=== PATIENT | male | born 1955 | race Caucasian/White ===

== ENCOUNTER 2016-11-07 17:23 | Emergency (ER) | payer OTHER ==
--- NOTE | 2016-11-07 17:54 | EDPHY ---
H & P Stated Complaint: cough and wheezing,getting worse, hx PE,no CP HPI/ROS: HPI CHIEF COMPLAINT: Shortness of breath, wheezing, cough with sputum production HISTORY OF PRESENT ILLNESS: This patient 61-year-old male, significant past medical history for pulmonary embolism, on Coumadin, denies any other underlying lung disease, presents to the emergency room with 2 weeks of progressively worsening shortness of breath. Patient states initially he had sinus congestion and upper airway congestion this then "settled into his chest" patient tells me for the past week has had progressively worsening shortness of breath with cough with clear sputum, and wheezing. Tells me he can' t take a deep breath in. He tells me this feels exactly like he did when he had a pulmonary embolism. He states his initial pulmonary embolism was years ago with calf swelling he has no calf swelling this time or pain. He is on Coumadin for PE. No other medications. he did call his primary care doctor's referred to the emergency room for evaluation. Past Medical History: Denies medical history except for pulmonary embolism Past Surgical History: No recent surgical history Social History: Denies daily use drugs alcohol tobacco Family History: noncontributory ROS REVIEW OF SYSTEMS: A comprehensive 10 point review of systems is otherwise negative aside from elements mentioned in the history of present illness. Exam Constitutional appears well nontoxic triage nursing summary reviewed, vital signs reviewed, awake/alert. Eyes normal conjunctivae and sclera, EOMI, PERRLA. HENT normal inspection, atraumatic, moist mucus membranes, no epistaxis, neck supple/ no meningismus, no raccoon eyes. Respiratory decreased breath sounds bilaterally, wheezing on the right lung worse than the left lung, bronchitic sounding cough Cardiovascular rate normal, regular rhythm, no murmur, no edema, distal pulses normal. Gastrointestinal soft, non-tender, no rebound, no guarding, normal bowel sounds, no distension, no pulsatile mass. Genitourinary no CVA tenderness. Musculoskeletal no midline vertebral tenderness, full range of motion, no calf swelling, no tenderness of extremities, no meningismus, good pulses, neurovascularly intact. Skin pink, warm, & dry, no rash, skin atraumatic. Neurologic awake, alert and oriented x 3, AAOx3, moves all 4 extremities equally, motor intact, sensory intact, CN II-XII intact, normal cerebellar, normal vision, normal speech. Psychiatric normal mood/affect. Heme/Lymph/Immune no lymphadenopathy. Differential Diagnosis: Includes but is not limited to in a particular order, pulmonary embolism, pneumonia, reactive airway disease, asthma, viral syndrome, viral pneumonia, bacterial pneumonia Medical Decision Making: plan for this patient full cardiac catheterization technician IV establishment, check EKG, D-dimer , two view chest x-ray, Coumadin level, DuoNeb breathing treatment, Solu-Medrol Re-evaluation: EKG interpretation by me on record in [employer] system. Impression time of EKG 18 20, sinus rhythm rate of 72 no acute ischemic changes appreciated. Intervals are appropriate. No signs of cardiac arrhythmia. Unremarkable EKG. ED x-ray chest two view: negative for acute pulmonary disease is noted thoracic aorta is tortuous. EKG interpretation by me on record in [facility] system. Impression time of EKG 183, this is sinus rhythm rate of 57 PVC present. When I compare this EKG to EKG dated 03/13/2012 similar in morphology. No acute ischemia appreciated. CT scan of the angiogram chest with IV contrast The results of the study are ascending aortic aneurysm 4.6 cm, no pulmonary embolism bronchitis present.. The study was read by Dr. Hough I viewed the images myself on the PACS system. 191: I discussed this patient's CT scan results with the patient notified that he does have a CT angiogram that shows a aortic ascending aneurysm 4.6 cm stable. No pulmonary embolism. Bronchitis present. Most likely cause of shortness of breath is bronchitis. Will place patient on Doxy, prednisone albuterol. Return if any worsening symptoms. He understands. Source: Patient - Personal History Tetanus Vaccine Date: WITHIN 10 YRS - Medical/Surgical History Other PMH: Pulmonary Embolism 2, last 2013, on Warfarin since. Constitutional: Initial Vital Signs Temperature (C) 37.2 C 11/07/16 17:42 Heart Rate 45 L 11/07/16 17:42 Respiratory Rate 16 11/07/16 17:42 Blood Pressure 156/86 H 11/07/16 17:42 O2 Sat (%) 95 11/07/16 17:42 O2 Delivery Mode Room Air Allergies/Adverse Reactions: No Allergies [NKA] Allergy (Verified 11/07/16 17:41) Home Medications: Medication Instructions Recorded Completed By Ram Car Operator 08/09/12 08/09/12 Warfarin Sodium [Coumadin 4MG (RX)] 4 mg PO DAILY16 08/09/12 Albuterol [Proventil Inhaler HFA 1 - 2 puffs IH Q4H #1 mdi 11/07/16 (*)] Doxycycline Hyclate 100 mg PO BID #14 tablet 11/07/16 predniSONE 60 mg PO DAILY #15 tab 11/07/16 Medical Decision Making - Diagnostics Imaging Results: Imaging Impressions Chest X-Ray 11/07/16 18:01 Impression: Negative chest for acute abnormality. Tortuous thoracic aorta.. - Data Points Laboratory Results: Laboratory Results 11/07/16 18:00 11/07/16 18:00 11/07/16 11/07/16 11/07/16 18:10 18:00 18:00 WBC RBC Hgb Hct MCV MCH MCHC RDW Plt Count MPV Neut % (Auto) Lymph % (Auto) [place] % (Auto) Eos % (Auto) Baso % (Auto) Nucleat RBC Rel Count Absolute Neuts (auto) Absolute Lymphs (auto) Absolute Monos (auto) Absolute Eos (auto) Absolute Basos (auto) Absolute Nucleated RBC Immature Gran % Immature Gran # PT 22.8 SEC H SEC (12.0-15.0) INR 2.04 H (0.83-1.16) APTT 31.3 SEC SEC (23.0-38.0) D-Dimer < 0.27 ug/mLFEU ug/mLFEU (0.00-0.50) VBG Lactic Acid Sodium 139 mEq/L mEq/L (134-144) Potassium 4.1 mEq/L mEq/L (3.5-5.2) Chloride 104 mEq/L mEq/L (97-110) Carbon Dioxide 21 mEq/l L mEq/l (22-31) Anion Gap 14 mEq/L mEq/L (8-16) BUN 15 mg/dL mg/dL (7-23) Creatinine 1.1 mg/dL mg/dL (0.7-1.3) Estimated GFR > 60 Glucose 100 mg/dL mg/dL (70-100) Calcium 8.8 mg/dL mg/dL (8.5-10.4) Troponin I < 0.012 ng/mL ng/mL (0-0.034) NT-Pro-B Natriuret Pep 116 pg/mL pg/mL (0-125) Influenza A,B Rapid NEGATIVE FOR FLU (NEGATIVE) 11/07/16 11/07/16 18:00 18:00 WBC 7.09 10^3/uL 10^3/uL (3.80-9.50) RBC 5.47 10^6/uL 10^6/uL (4.40-6.38) Hgb 16.3 g/dL g/dL (13.7-17.5) Hct 45.9 % % (40.0-51.0) MCV 83.9 fL fL (81.5-99.8) MCH 29.8 pg pg (27.9-34.1) MCHC 35.5 g/dL g/dL (32.4-36.7) RDW 12.8 % % (11.5-15.2) Plt Count 187 10^3/uL 10^3/uL (150-400) MPV 9.8 fL fL (8.7-11.7) Neut % (Auto) 52.4 % % (39.3-74.2) Lymph % (Auto) 36.1 % % (15.0-45.0) [place] % (Auto) 6.9 % % (4.5-13.0) Eos % (Auto) 4.1 % % (0.6-7.6) Baso % (Auto) 0.4 % % (0.3-1.7) Nucleat RBC Rel Count 0.0 % % (0.0-0.2) Absolute Neuts (auto) 3.71 10^3/uL 10^3/uL (1.70-6.50) Absolute Lymphs (auto) 2.56 10^3/uL 10^3/uL (1.00-3.00) Absolute Monos (auto) 0.49 10^3/uL 10^3/uL (0.30-0.80) Absolute Eos (auto) 0.29 10^3/uL 10^3/uL (0.03-0.40) Absolute Basos (auto) 0.03 10^3/uL 10^3/uL (0.02-0.10) Absolute Nucleated RBC 0.00 10^3/uL 10^3/uL (0-0.01) Immature Gran % 0.1 % % (0.0-1.1) Immature Gran # 0.01 10^3/uL 10^3/uL (0.00-0.10) PT INR APTT D-Dimer VBG Lactic Acid 1.2 mmol/L mmol/L (0.7-2.1) Sodium Potassium Chloride Carbon Dioxide Anion Gap BUN Creatinine Estimated GFR Glucose Calcium Troponin I NT-Pro-B Natriuret Pep Influenza A,B Rapid Medications Given: Discontinued Medications Albuterol/Ipratropium (Duoneb) 3 ml IH EDNOW ONE Stop: 11/07/16 18:01 Last Admin: 11/07/16 18:28 Dose: 3 ml Sodium Chloride (Ns) 1,000 mls @ 0 mls/hr IV ONCE ONE PRN Reason: Wide Open Stop: 11/07/16 18:01 Last Admin: 11/07/16 18:32 Dose: 1,000 mls Methylprednisolone Sodium Succinate (Solu-Medrol) 125 mg IVP EDNOW ONE Stop: 11/07/16 18:01 Last Admin: 11/07/16 18:28 Dose: 125 mg Departure - Departure Disposition: Home, Routine, Self-Care Clinical Impression: Acute bronchitis Qualifiers: Bronchitis organism: unspecified organism Qualified Code(s): J20.9 - Acute bronchitis, unspecified Condition: Good Instructions: Acute Bronchitis (ED) Additional Instructions: 1. Stay well-hydrated drink lots of fluids. 2. return emergency room if you have worsening shortness of breath. Referrals: KIMBERLY RILEY [Primary Care Provider] - As per Instructions Prescriptions: Albuterol [Proventil Inhaler HFA (*)] 1 - 2 puffs IH Q4H #1 mdi Doxycycline Hyclate 100 mg PO BID #14 tablet predniSONE 60 mg PO DAILY #15 tab
[2016-11-07] MEDS ORDERED: methylPREDNISolone SOD SUCC 125 MG/2 ML VIAL IVP ONE (18:00)
[2016-11-07] MEDS ORDERED: IPRATROPIUM/ALBUTEROL 3 ML DEYVIAL IH ONE (18:00)
[2016-11-07] MEDS ORDERED: NS 1,000 ML IV ONE (18:00)
[2016-11-07] MEDS ORDERED: IOPAMIDOL (ISOVUE 370) 100 ML BTL IV ONE (18:21)
[2016-11-07 18:23] LABS: % IMMATURE GRANULYOCYTES 0.1 % (0.0-1.1); ABSOLUTE IMMATURE GRANULOCYTES 0.01 10^3/uL (0.00-0.10); ADD DIFF? NO; ADD MORPH? NO; ADD SCAN? NO; ATYPICAL LYMPHOCYTE FLAG 10 (0-99); FRAGMENT RBC FLAG 0 (0-99); HEMATOCRIT 45.9 % (40.0-51.0); HEMOGLOBIN 16.3 g/dL (13.7-17.5); LEFT SHIFT FLG 0 (0-99); LIPEMIA HEMOLYSIS FLAG 90 (0-99); MEAN CELL HEMOGLOBIN 29.8 pg (27.9-34.1); MEAN CELL HEMOGLOBIN CONCENTR. 35.5 g/dL (32.4-36.7); MEAN CELL VOLUME 83.9 fL (81.5-99.8); MEAN PLATELET VOLUME 9.8 fL (8.7-11.7); PLATELET CLUMPS FLAG 0 (0-99); PLATELET COUNT 187 10^3/uL (150-400); RED BLOOD CELL COUNT 5.47 10^6/uL (4.40-6.38); RED CELL DISTRIBUTION WIDTH 12.8 % (11.5-15.2)
[2016-11-07 18:30] LABS: APTT 31.3 SEC (23.0-38.0); INR 2.04 (0.83-1.16); PROTIME(PATIENT) 22.8 SEC (12.0-15.0)
--- NOTE | 2016-11-07 18:36 | CPEKG ---
Heart Rate: 57 RR Interval: 1053 P-R Interval: 172 QRSD Interval: 118 QT Interval: 448 QTC Interval: 437 P Mobile: 30 QRS Mobile: -48 T Wave Mobile: 15 EKG Severity - ABNORMAL ECG - EKG Impression: SINUS RHYTHM EKG Impression: VENTRICULAR PREMATURE COMPLEX EKG Impression: LAD, CONSIDER LEFT ANTERIOR FASCICULAR BLOCK Electronically Signed By: Gregoria Fernandez 08-Nov-2016 16:59:59
[2016-11-07 18:38] LABS: ANION GAP 14 mEq/L (8-16); CALCIUM 8.8 mg/dL (8.5-10.4); CARBON DIOXIDE 21 mEq/l (22-31); CHLORIDE 104 mEq/L (97-110); CREATININE 1.1 mg/dL (0.7-1.3); GLOMERULAR FILTRATION RATE > 60; GLUCOSE 100 mg/dL (70-100); POTASSIUM 4.1 mEq/L (3.5-5.2); SODIUM 139 mEq/L (134-144)
[2016-11-07 18:50] LABS: TROPONIN I < 0.012 ng/mL (0-0.034)
[2016-11-07 18:58] VITALS: TEMP 98.6
[2016-11-07 19:41] VITALS: BP 129/87; PULSE 64; RESP 16; O2SAT 94
== END 2016-11-07 19:42 | disposition home or self-care (01) ==
LOC: CED 17:23
DX: J20.9 Acute bronchitis, unspecified (principal); Z79.01 Long term (current) use of anticoagulants
CPT/HCPCS: 71020-PO; 71275-PO; 80048-PO; 83605-PO; 83880-PO; 84484-PO; 85025-PO; 85378-PO; 85610-PO; 85730-PO; 87400-PO; 96374; Q9967